=== PATIENT | male | born 1965 | race Caucasian/White ===

== ENCOUNTER 2017-01-28 19:53 | Inpatient (IN) | payer MEDICARE, MEDICAID ==
[~2017-01-28] VITALS: Ht 172.7 cm; Wt 78.2 kg
[~2017-01-28 19:53] MED LIST: GEOD80CA PO; LISI10TA3 PO; SERO100T PO; SERO200T PO; TRIL600T PO
[2017-01-28 20:14] VITALS: BP 143/81; PULSE 101; RESP 16; TEMP 98.3; O2SAT 98
[2017-01-28] MEDS ORDERED: LORazepam 2 MG/ML VIAL IM ONE (22:00)
[2017-01-28] MEDS ORDERED: OLANZapine IM 10 MG VIAL IM ONE (22:00)
[2017-01-28 22:20] VITALS: BP 145/81; PULSE 98; RESP 16; O2SAT 99
[2017-01-28 22:42] LABS: AUTOMATED NEUTROPHIL # 9.5 TH/MM3 (1.8-7.7); BASOPHIL # 0.1 TH/MM3 (0-0.2); EOSINOPHIL # 0.2 TH/MM3 (0-0.4); EOSINOPHIL % 1.7 % (0.0-4.0); HEMATOCRIT 41.6 % (39.0-51.0); HEMO FLAGS DIFF FINAL; LYMPH % 19.4 % (9.0-44.0); LYMPHOCYTE # 2.6 TH/MM3 (1.0-4.8); MEAN CORPUSCULAR HEMOGLOBIN 31.5 PG (27.0-34.0); MEAN CORPUSCULAR HGB CONC 33.8 % (32.0-36.0); MONO % 6.1 % (0.0-8.0); NEUT % 71.8 % (16.0-70.0); PLATELET COUNT 324 TH/MM3 (150-450); RED BLOOD COUNT 4.47 MIL/MM3 (4.50-5.90); RED CELL DISTRIBUTION WIDTH 13.3 % (11.6-17.2); WHITE BLOOD COUNT 13.2 TH/MM3 (4.0-11.0)
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
[2017-01-28 22:56] LABS: ALT (GPT) 59 U/L (12-78); ANION GAP 13 MEQ/L (5-15); AST (GOT) 95 U/L (15-37); BICARBONATE 18.6 MEQ/L (21.0-32.0); BLOOD UREA NITROGEN 41 MG/DL (7-18); CHLORIDE 107 MEQ/L (98-107); GLOMERULAR FILTRATION RATE 35 ML/MIN (>89); POTASSIUM 4.4 MEQ/L (3.5-5.1); SODIUM (NA) 139 MEQ/L (136-145)
[2017-01-28 22:59] LABS: ALKALINE PHOSPHATASE 100 U/L (45-117); TOTAL BILIRUBIN ADULT 0.5 MG/DL (0.2-1.0)
[2017-01-28 23:10] LABS: ACETAMINOPHEN LESS THAN 2.0 MCG/ML (10.0-30.0); ALCOHOL 3 MG/DL (0-5)
[2017-01-28] MEDS ORDERED: SODIUM CHLOR 0.9% 1000 ML INJ 1,000 ML IV ONE (23:45)
[2017-01-29 08:23] VITALS: BP 124/86; PULSE 93; RESP 16; TEMP 98.1; O2SAT 100
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
[2017-01-29] MEDS ORDERED: LORazepam 2 MG/ML VIAL IM ONE (10:45)
[2017-01-29] MEDS: HALOPERIDOL LACTATE 5 MG/ML AMP IM ONE ×2 (10:45→10:55)
[2017-01-29 12:38] VITALS: BP 140/84; PULSE 101; RESP 18; TEMP 98.7; O2SAT 98
[2017-01-29] MEDS ORDERED: QUEtiapine FUMARATE 200 MG TAB PO ONE (15:15)
[2017-01-29] MEDS ORDERED: diphenhydrAMINE HCL 50 MG/ML VIAL IM ONE (15:15)
[2017-01-29] MEDS ORDERED: ZIPRASIDONE MESYLATE 20 MG VIAL IM ONE (15:15)
[2017-01-29] MEDS ORDERED: ALUMINUM/MAGNESIUM/SIMETH 30 ML CUP PO PRN (15:30)
[2017-01-29] MEDS ORDERED: diphenhydrAMINE HCL 50 MG/ML VIAL IM PRN (15:30)
[2017-01-29] MEDS ORDERED: diphenhydrAMINE HCL 50 MG CAP PO PRN (15:30)
[2017-01-29] MEDS ORDERED: LORazepam 2 MG/ML VIAL IM PRN (15:30)
[2017-01-29] MEDS: LISINOPRIL 10 MG TAB PO SCH (15:30)
[2017-01-29] MEDS ORDERED: MAGNESIUM HYDROXIDE SUSP 30 ML CUP PO PRN (15:30)
[2017-01-29] MEDS ORDERED: ACETAMINOPHEN 325 MG TAB PO PRN (15:30)
[2017-01-29 17:45] VITALS: BP 135/90; PULSE 75; RESP 18; TEMP 97.8; O2SAT 100
[2017-01-29] MEDS ORDERED: cloNIDine HCL 0.1 MG TAB PO PRN (18:45)
[2017-01-29] MEDS: ZIPRASIDONE HCL 80 MG CAP PO SCH (21:00)
[2017-01-29] MEDS ORDERED: QUEtiapine FUMARATE 200 MG TAB PO SCH (21:00)
[2017-01-29] MEDS: OXcarbazepine 600 MG TAB PO SCH (21:00)
[2017-01-29 21:09] VITALS: BP 136/95; PULSE 95; RESP 18; O2SAT 100
[2017-01-29] MEDS: LORazepam 1 MG TAB PO PRN (21:47)
[2017-01-30 06:00] VITALS: BP 121/60; PULSE 106; RESP 18; TEMP 97.8; O2SAT 97
[2017-01-30] MEDS: ZIPRASIDONE HCL 80 MG CAP PO SCH (08:37)
[2017-01-30] MEDS: OXcarbazepine 600 MG TAB PO SCH (08:37)
[2017-01-30] MEDS: LORazepam 1 MG TAB PO PRN (08:38)
[2017-01-30] MEDS: LISINOPRIL 10 MG TAB PO SCH (08:38)
[2017-01-30] MEDS ORDERED: NICOTINE 21 MG/24 HR PATCH T-DERMAL SCH (09:00)
[2017-01-30] MEDS ORDERED: QUEtiapine FUMARATE 100 MG TAB PO SCH (09:00)
[2017-01-30 10:45] LABS: AUTOMATED NEUTROPHIL # 4.8 TH/MM3 (1.8-7.7); BASOPHIL % 0.5 % (0.0-2.0); EOSINOPHIL # 0.2 TH/MM3 (0-0.4); EOSINOPHIL % 2.8 % (0.0-4.0); HEMATOCRIT 37.3 % (39.0-51.0); HEMO FLAGS DIFF FINAL; LYMPHOCYTE # 1.4 TH/MM3 (1.0-4.8); MEAN CORPUSCULAR HEMOGLOBIN 30.7 PG (27.0-34.0); MONO % 5.7 % (0.0-8.0); PLATELET COUNT 262 TH/MM3 (150-450); RED BLOOD COUNT 4.01 MIL/MM3 (4.50-5.90); RED CELL DISTRIBUTION WIDTH 13.3 % (11.6-17.2); WHITE BLOOD COUNT 6.8 TH/MM3 (4.0-11.0)
[2017-01-30 11:17] LABS: ANION GAP 6 MEQ/L (5-15); AST (GOT) 49 U/L (15-37); BICARBONATE 23.6 MEQ/L (21.0-32.0); BLOOD UREA NITROGEN 21 MG/DL (7-18); CHLORIDE 110 MEQ/L (98-107); GLOMERULAR FILTRATION RATE 57 ML/MIN (>89); POTASSIUM 4.1 MEQ/L (3.5-5.1); SODIUM (NA) 140 MEQ/L (136-145)
[2017-01-30 11:54] LABS: ALKALINE PHOSPHATASE 80 U/L (45-117); ALT (GPT) 49 U/L (12-78); HDL CHOLESTEROL 53.3 MG/DL (40.0-60.0); LDL CHOLESTEROL 78 MG/DL (0-99); TOTAL BILIRUBIN ADULT 0.2 MG/DL (0.2-1.0)
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
[2017-01-30] MEDS ORDERED: ACETAMINOPHEN 325 MG TAB PO PRN (13:00)
--- NOTE | 2017-01-30 13:12 | HHI.HP ---
Provisional Diagnosis Admission Date Jan 29, 2017 at 15:19 [place]. History affect disorder bipolar type f 25.0 Certification of Person's Competence To Provide Express and Informed Consent I have personally examined Gerhard Wooten , a person being served at [facility] on, Jan 30, 2017 12:58. Express and informed consent means consent voluntarily given in writing, by a competent person, after sufficient explanation and disclosure of the subject matter involved to enable the person to make a knowing and willful decision without any element of force, fraud, deceit, duress, or other form of constraint or coercion. This person is 18 years of age or older, is not now known to be incompetent to consent to treatment with a guardian advocate, and does not have a health care surrogate or proxy currently making medical treatment decisions. I have found this person to be one of the following: [xxx] Competent to provide express and informed consent, as defined above, for voluntary admission to this facility and is competent to provide express and informed consent for treatment. He/she has the consistent capacity to make well reasoned, willful, and knowing decisions concerning his or her medical or mental health treatment. The person fully and consistently understands the purpose of the admission for examination/placement and is fully capable of personally exercising all rights assured [place] Incompetent to provide express and informed consent to voluntary admission, and this is incompetent to provide express and informed consent to treatment. The person must be transferred to involuntary status and a petition for a guardian advocate filed with the Circuit Court. [] Refusing to provide express and informed consent to voluntary admission but is competent to provide express and informed consent for treatment. The person must be discharged or transferred to involuntary status. Form shall be completed within 24 hours of a person's arrival at the receiving facility and filed in the clinical record of each person: 1. Admitted on a voluntary basis 2. Permitted to provide express and informed consent to his/her own treatment 3. Allowed to transfer from involuntary to voluntary status 4. Prior to permitting a person to consent to his or her own treatment after having been previously found incompetent to consent to treatment. History of Present Illness Capacity: Has Capacity Psych Chief Complaint: patient vague suicidality, off medication 3-4 days HPI Patient is a 51-year-old white male who initially came to emergency department voluntarily complaining of vague suicidal ideation off his medications for 3-4 days. Patient seen screen in the ED urine toxicology positive for cocaine. Patient given is somewhat confusing history of mental health issues and various medications. Dating his recently down here from [place] to help but had some episcopalian activity. He is planning on returning to [place]. He gets his medications through there and he has had prior psychiatric contact in [place]. Review of our EMR shows multiple prior mental health contacts going back to 2003. Mini-Mental at the present time patient is alert oriented calm cooperative denies suicidality homicidality voices or visions. States he does have a supply of his medication his backpack. He would be getting refills on his medication at the [facility] this week when he gets some further funding. He is somewhat vague and reluctant to speak about his cocaine use.To the present time patient does not meet Anne act criteria he states he does have a place to stay, states does have his medication. Thus I'll lift the Anne act allow patient to be discharged from self with no Rx by me refer him to [facility] at his discretion. The patient was referred to that organization in the past Review of Systems Constitutional: DENIES: Diaphoretic episodes, Fatigue, Fever, Weight gain, Weight loss, Chills, Dizziness, Change in appetite, Night Sweats Endocrine: DENIES: Heat/cold intolerance, Polydipsia, Polyuria, Polyphagia Eyes: DENIES: Blurred vision, Diplopia, Eye inflammation, Eye pain, Vision loss , Photosensitivity, Double Vision Ears, nose, mouth, throat: DENIES: Tinnitus, Hearing loss, Vertigo, Nasal discharge, Oral lesions, Throat pain, Hoarseness, Ear Pain, Running Nose, Epistaxis, Sinus Pain, Toothache, Odynophagia Respiratory: DENIES: Apneas, Cough, Snoring, Wheezing, Hemoptysis, Sputum production, Shortness of breath Cardiovascular: DENIES: Chest pain, Palpitations, Syncope, Dyspnea on Exertion , PND, Lower Extremity Edema, Orthopnea, Claudication Gastrointestinal: DENIES: Abdominal pain, Black stools, Bloody stools, Constipation, Diarrhea, Nausea, Vomiting, Difficulty Swallowing, Anorexia Genitourinary: DENIES: Sexual dysfunction, Urinary frequency, Urinary incontinence, Urgency, Hematuria, Dysuria, Nocturia, Penile Discharge, Testicular Pain, Testicular Swelling Musculoskeletal: DENIES: Joint pain, Muscle aches, Stiffness, Joint Swelling, Back pain, Neck pain Integumentary: DENIES: Abnormal pigmentation, Nail changes, Pruritus, Rash Hematologic/lymphatic: DENIES: Bruising, Lymphadenopathy Immunologic/allergic: DENIES: Eczema, Urticaria Neurologic: DENIES: Abnormal gait, Headache, Localized weakness, Paresthesias, Seizures, Speech Problems, Tremor, Poor Balance Psychiatric: COMPLAINS OF: Anxiety, Hallucinations, Suicidal Ideation (mild) Past Psych History Psychological trauma history Denies Violence risk - others (6 mos) Low Violence risk - self (6 mos) Low Substance Abuse History Drugs/Alcohol past 12 months Patient history of substance abuse is positive for cocaine Past Family Social History Coded Allergies: haloperidol (Verified Allergy, Unknown, MUSCLE STIFFNESS AND JITTERY , ) Reported Medications Oxcarbazepine (Trileptal) 600 Mg Tab, 600 MG PO BID for Seizure Control, #60 TAB 0 Refills 02/03/16 Ziprasidone (Geodon) 80 Mg Cap, 80 MG PO BID, #60 CAP 0 Refills 02/03/16 Lisinopril (Lisinopril) 10 Mg Tab, 10 MG PO DAILY, #30 TAB 0 Refills 02/03/16 Quetiapine (Seroquel) 200 Mg Tab, 200 MG PO HS, #30 TAB 0 Refills 02/03/16 Quetiapine (Seroquel) 100 Mg Tab, 100 MG PO DAILY, #30 TAB 0 Refills 02/03/16 Current Medications Medications (Trade) Dose Ordered Sig/Reji Route Start Time Stop Time Status Last Admin (Prinivil) 10 mg DAILY PO 01/29/17 15:30 01/30/17 08:38 (Trileptal) 600 mg BID PO 01/29/17 21:00 01/30/17 08:37 (SEROquel) 100 mg DAILY PO 01/30/17 09:00 01/30/17 08:38 (SEROquel) 200 mg HS PO 01/29/17 21:00 01/29/17 21:00 (Geodon) 80 mg BID PO 01/29/17 21:00 01/30/17 08:37 (Ativan) 1 mg Q6H PRN PO 01/29/17 15:30 01/30/17 08:38 (Ativan Inj) 1 mg Q6H PRN IM 01/29/17 15:30 (Benadryl) 50 mg Q6H PRN PO 01/29/17 15:30 01/29/17 21:47 (Benadryl Inj) 50 mg Q6H PRN IM 01/29/17 15:30 (Tylenol) 650 mg Q4H PRN PO 01/29/17 15:30 (Milk Of Magnesia Liq) 30 ml DAILY PRN PO 01/29/17 15:30 (Mag-Al Plus Susp Liq) 30 ml Q6H PRN PO 01/29/17 15:30 (Habitrol 21 Mg Patch.24 Hr) 1 patch DAILY T-DERMAL 01/30/17 09:00 Miscellaneous Information 1 DAILY T-DERMAL 01/31/17 09:00 (Catapres) 0.1 mg Q6H PRN PO 01/29/17 18:45 Family Psych History Denies Social History Single states she does have family support in [place] Patient's Strengths (min. 2) Patient verbal able axis health care Physical Exam Patient seen screen in our ED exam reviewed and agreed with. Patient standing quietly willingness on 2700 he is in no acute distress, no respiratory distress , no complaints of abdominal pain. Patient moves all 4 extremities without difficulty. No abnormal motor movements noted Vital Signs Vital Signs Date Time Temp Pulse Resp B/P (MAP) Pulse Ox O2 Delivery O2 Flow Rate FiO2 01/30/17 06:00 97.8 106 18 121/60 (80) 97 01/29/17 17:45 Room Air Lab Results Test 01/30/17 09:50 White Blood Count 6.8 TH/MM3 Red Blood Count 4.01 MIL/MM3 Hemoglobin 12.3 GM/DL Hematocrit 37.3 % Mean Corpuscular Volume 93.0 FL Mean Corpuscular Hemoglobin 30.7 PG Mean Corpuscular Hemoglobin Concent 33.0 % Red Cell Distribution Width 13.3 % Platelet Count 262 TH/MM3 Mean Platelet Volume 8.6 FL Neutrophils (%) (Auto) 70.0 % Lymphocytes (%) (Auto) 21.0 % Monocytes (%) (Auto) 5.7 % Eosinophils (%) (Auto) 2.8 % Basophils (%) (Auto) 0.5 % Neutrophils # (Auto) 4.8 TH/MM3 Lymphocytes # (Auto) 1.4 TH/MM3 Monocytes # (Auto) 0.4 TH/MM3 Eosinophils # (Auto) 0.2 TH/MM3 Basophils # (Auto) 0.0 TH/MM3 CBC Comment DIFF FINAL Differential Comment Blood Urea Nitrogen 21 MG/DL Creatinine 1.31 MG/DL Random Glucose 111 MG/DL Total Protein 6.1 GM/DL Albumin 3.0 GM/DL Calcium Level 8.4 MG/DL Alkaline Phosphatase 80 U/L Aspartate Amino Transf (AST/SGOT) 49 U/L Alanine Aminotransferase (ALT/SGPT) 49 U/L Total Bilirubin 0.2 MG/DL Sodium Level 140 MEQ/L Potassium Level 4.1 MEQ/L Chloride Level 110 MEQ/L Carbon Dioxide Level 23.6 MEQ/L Anion Gap 6 MEQ/L Estimat Glomerular Filtration Rate 57 ML/MIN Triglycerides Level 133 MG/DL Cholesterol Level 158 MG/DL LDL Cholesterol 78 MG/DL HDL Cholesterol 53.3 MG/DL Cholesterol/HDL Ratio 2.96 RATIO Vitamin B12 Level 508 PG/ML 25-Hydroxy Vitamin D Total 15.3 ng/ML Thyroid Stimulating Hormone 3rd Gen 0.477 uIU/ML Mental Status Examination Appearance: Appropriate, Disheveled Consciousness: Alert (mildly) Orientation: x4 Motor Activity: Normal gait Speech: Pressured (mildly), Rapid Language: Adequate Fund of Knowledge: Adequate Attention and Concentration: Adequate Memory: Unremarkable Mood: Other (euthymic to somewhat elevated) Affect: Other (increase range and intensity) Thought Process & Associations: Intact Thought Content: Appropriate, Bizarre thinking (mild) Hallucination Type: None Delusion Type: None Suicidal Ideation: No Suicidal Plan: No Suicidal Intention: No Homicidal Ideation: No Homicidal Plan: No Homicidal Intention: No Insight: Poor Judgment: Poor Assessment & Plan Problem List: (1) Schizoaffective disorder ICD Codes: F25.9 - Schizoaffective disorder, unspecified (2) Cocaine abuse ICD Codes: F14.10 - Cocaine abuse, uncomplicated Assessment & Plan Estimated LOS: days at this time patient does not meet Anne criteria will lift Anne act allow patient to be discharged from self, states she has a supply of medication thus the been no Rx by me. The follow-through with his mental health workers in [place] if he returns there soon otherwise follow -through with [facility] act to also consult follow-up with in a local and absolute abstinence Discharge Planning See above Request HC Surrog/Guard Advoc?: No Problem Qualifiers (1) Schizoaffective disorder: Qualified Codes: F25.0 - Schizoaffective disorder, bipolar type Wade Kim MD Jan 30, 2017 13:12
--- NOTE | 2017-01-30 13:17 | HHI.DS ---
Psychiatry Discharge Summary Inpatient Psychiatric care?: Yes Advance Directive: No Mental Health AdvanceDirective: No Health Care Proxy: No Admission Admission Date Jan 29, 2017 at 15:19 Admission Diagnosis: (1) Schizoaffective disorder ICD Code: F25.9 - Schizoaffective disorder, unspecified (2) Cocaine abuse ICD Code: F14.10 - Cocaine abuse, uncomplicated Brief History Patient is a 51-year-old white male who initially came to emergency department voluntarily complaining of vague suicidal ideation off his medications for 3-4 days. Patient seen screen in the ED urine toxicology positive for cocaine. Patient given is somewhat confusing history of mental health issues and various medications. Dating his recently down here from [place] to help but had some sabianist activity. He is planning on returning to [place]. He gets his medications through there and he has had prior psychiatric contact in [place]. Review of our EMR shows multiple prior mental health contacts going back to 2003. Mini-Mental at the present time patient is alert oriented calm cooperative denies suicidality homicidality voices or visions. States he does have a supply of his medication his backpack. He would be getting refills on his medication at the [facility] this week when he gets some further funding. He is somewhat vague and reluctant to speak about his cocaine use.To the present time patient does not meet Anne act criteria he states he does have a place to stay, states does have his medication. Thus I'll lift the Anne act allow patient to be discharged from self with no Rx by me refer him to [facility] at his discretion. The patient was referred to that organization in the past Tobacco Use In Past 30 Days: No Tobacco Past 30 Days Alcohol Use: Monthly or Less Hospital Course Please see brief history. Patient does not meet Anne criteria will lift Anne act allow patient to be discharged from self. No Rx by me. May continue his own schedule medications at home. If remains local follow-up for [facility] if returns to [place] area follow-up collision in that area. Also referred to NA. Recommend absolute sobriety Results Blood Pressure 121 / 60 Vital Signs Date Time Temp Pulse Resp B/P (MAP) Pulse Ox O2 Delivery O2 Flow Rate FiO2 01/30/17 06:00 97.8 106 18 121/60 (80) 97 01/29/17 17:45 Room Air Laboratory Tests Test 01/28/17 22:15 01/30/17 09:50 White Blood Count 13.2 TH/MM3 (4.0-11.0) Red Blood Count 4.47 MIL/MM3 (4.50-5.90) 4.01 MIL/MM3 (4.50-5.90) Neutrophils (%) (Auto) 71.8 % (16.0-70.0) Neutrophils # (Auto) 9.5 TH/MM3 (1.8-7.7) Blood Urea Nitrogen 41 MG/DL (7-18) 21 MG/DL (7-18) Creatinine 2.01 MG/DL (0.60-1.30) 1.31 MG/DL (0.60-1.30) Aspartate Amino Transf (AST/SGOT) 95 U/L (15-37) 49 U/L (15-37) Carbon Dioxide Level 18.6 MEQ/L (21.0-32.0) Estimat Glomerular Filtration Rate 35 ML/MIN (>89) 57 ML/MIN (>89) Acetaminophen Level LESS THAN 2.0 MCG/ML Urine Cocaine Screen POS (NEG) Hemoglobin 12.3 GM/DL (13.0-17.0) Hematocrit 37.3 % (39.0-51.0) Random Glucose 111 MG/DL (74-106) Total Protein 6.1 GM/DL (6.4-8.2) Albumin 3.0 GM/DL (3.4-5.0) Calcium Level 8.4 MG/DL (8.5-10.1) Chloride Level 110 MEQ/L (98-107) 25-Hydroxy Vitamin D Total 15.3 ng/ML (30-100) Laboratory Results Test 01/30/17 09:50 Cholesterol Level 158 MG/DL (120-200) HDL Cholesterol 53.3 MG/DL (40.0-60.0) LDL Cholesterol 78 MG/DL (0-99) Triglycerides Level 133 MG/DL (42-150) Summary of Procedures None done Pending results at discharge: No Medications # of Antipsychotic meds at D/C: 0 Approp Antipsych med options 1 - Minimum of three failed multiple trials of monotherapy. 2 - Documented plan to taper to monotherapy due to previous use of multiple meds OR cross-taper in progress at D/C. 3 - Documentation of augmentation of Clozapine. 4 - Justification other than those listed in allowable values 1-3, document here : Discharge Discharge Date: Jan 30, 2017 Discharge Diagnosis: (1) Cocaine abuse Diagnosis: Secondary ICD Code: F14.10 - Cocaine abuse, uncomplicated (2) Schizoaffective disorder Diagnosis: Principal ICD Code: F25.9 - Schizoaffective disorder, unspecified Pt Condition on Discharge: Stable Discharge Disposition: Discharge Home Discharge Instructions Diet Instructions: As Tolerated, No Restrictions Activities you can perform: Regular-No Restrictions Scheduled Appointment: [facility] August Discharge Time > 30 minutes Mental Status Examination Appearance: Appropriate, Disheveled Consciousness: Alert (mildly) Orientation: x4 Motor Activity: Normal gait Speech: Pressured (mildly), Rapid Language: Adequate Fund of Knowledge: Adequate Attention and Concentration: Adequate Memory: Unremarkable Mood: Other (euthymic to somewhat elevated) Affect: Other (increase range and intensity) Thought Process & Associations: Intact Thought Content: Appropriate, Bizarre thinking (mild) Hallucination Type: None Delusion Type: None Suicidal Ideation: No Suicidal Plan: No Suicidal Intention: No Homicidal Ideation: No Homicidal Plan: No Homicidal Intention: No Insight: Poor Judgment: Poor Discharge/Advance Care Plan Health Problems: (1) Schizoaffective disorder (2) Cocaine abuse Goals to promote your health * To prevent worsening of your condition and complications * To maintain your health at the optimal level Directions to meet your goals Take your medications as prescribed Follow your dietary instruction Follow activity as directed Keep your appointments as scheduled Take your immunizations and boosters as scheduled If your symptoms worsen call your PCP, if no PCP go to Urgent Care Center or Emergency Room For 05/10 questions related to your inpatient stay or results of tests pending at discharge, please contact Dr. Wade Kim at Smoking is Dangerous to Your Health. Avoid second hand smoking Problem Qualifiers (1) Schizoaffective disorder: Qualified Codes: F25.0 - Schizoaffective disorder, bipolar type Wade Kim MD Jan 30, 2017 13:17
--- NOTE | 2017-01-30 15:59 | EKG ---
Date Performed: 01/30/2017 Time Performed: 09:46:01 PTAGE: 51 years EKG: Sinus rhythm BORDERLINE RIGHT AXIS DEVIATION Compared to prior tracing no significant change BORDERLINE ECG PREVIOUS TRACING : 02/03/2016 18.34 DOCTOR: Coy Lam Interpretating Date/Time 01/30/2017 15:58:13
[2017-01-31] MEDS ORDERED: REMOVE OLD PATCH T-DERMAL SCH (09:00)
[2017-01-31 10:55] LABS: HEMOGLOBIN A1a 1.2 %; HEMOGLOBIN Ao 82.5 %; HEMOGLOBIN LA1C 2.6 %
== END 2017-01-30 15:05 | disposition home or self-care (01) | DRG 885 ==
LOC: NEPD 19:53 → NEDA 01-29 15:19 → H270 01-29 19:32
PROVIDERS: ADMIT Psychiatry & Neurology Psychiatry; ATTEND Psychiatry & Neurology Psychiatry
DX: F25.0 Schizoaffective disorder, bipolar type (principal); N17.9 Acute kidney failure, unspecified; R45.851 Suicidal ideations; F14.10 Cocaine abuse, uncomplicated; M19.90 Unspecified osteoarthritis, unspecified site; J44.9 Chronic obstructive pulmonary disease, unspecified; F31.10 Bipolar disorder, current episode manic without psychotic features, unspecified; I10 Essential (primary) hypertension; F17.210 Nicotine dependence, cigarettes, uncomplicated
CPT/HCPCS: 80053; 80061; 80307; 82306; 82607; 83036; 84443; 85025; 93005; 96360; 96372; J1200; J1630; J2060; J3486; J7030; Q0163